=== PATIENT | male | born 1950 | race African-American/Black ===

== ENCOUNTER 2024-12-22 08:16 | Emergency (ER) | payer MEDICARE, MEDICAID, SELFPAY ==
[2024-12-22 08:28] VITALS: BP 153/95; PULSE 82; RESP 18; TEMP 36.5; O2SAT 98; BMI 22.8
--- NOTE | 2024-12-22 08:37 | XR_ITS ---
EXAMINATION: PA lateral chest 2 views TECHNIQUE: Upright PA lateral chest 2 views Date and time: December 22, 2024, 0844 hours INDICATION: Coughing and wheezing beginning 3 days ago. FINDINGS: Normal heart size No pneumonia or pulmonary edema Opaque foreign bodies in the soft tissue posterior right chest IMPRESSION: No pneumonia or pulmonary edema
--- NOTE | 2024-12-22 08:37 | EDNOTE_ITS ---
Upper Respiratory Inf. RME/HPI General Stated Complaint: NEEDS INHAILER PER PT Time Seen by Provider: 12/22/24 08:23 Arrival date/time: 12/22/24 08:16 74-year-old homeless male presents to the emergency department today requesting a inhaler refill patient reports he has had some wheezing reports he is out of his inhaler. Limitations: no limitations Related Data Previous Rx's ?Medication ?Instructions ?Recorded Ventolin HFA 90 mcg/actuation 2 puff inhalation Q6H AK N 12/22/24 aerosol inhaler (albuterol sulfate) shortness of breat h or wheezing #18 grams Allergies Allergy/AdvReac Type Severity Reaction Status Date / Time No Known Allergies Allergy Verified 12/22/24 08:17 Review of Systems Review of Systems Systems Reviewed: All systems reviewed, normal except as documented Constitutional Constitutional: Reports system reviewed and no additional complaints, except as documented, Denies fever(s) and Denies headache(s) Eyes Eyes: Reports system reviewed and no additional complaints, except as documented and Denies blurry vision ENT Ears, Nose, Mouth, and Throat: Reports system reviewed and no additional complaints, except as documented, Denies headache(s), Denies nasal congestion and Denies nasal discharge Cardiovascular Cardiovascular: Reports system reviewed and no additional complaints, except as documented, Denies chest pain and Denies dyspnea Respiratory Respiratory: Reports system reviewed and no additional complaints, except as documented, Reports chest congestion, Reports cough, Denies dyspnea and Reports wheezing Gastrointestinal Gastrointestinal: Reports system reviewed and no additional complaints, except as documented and Denies abdominal pain Integumentary/Breasts Skin/Breast: Reports system reviewed and no additional complaints, except as documented and Denies rash Neurologic Neurologic: Reports system reviewed and no additional complaints, except as documented, Reports as per HPI and Denies headache(s) Allergic/Immunologic Allergic/Immunologic: Reports wheezing Past Medical History Social History SMOKING STATUS: Never smoker ED Exam General Limitations: Present no limitations General appearance: Present alert and in no apparent distress Head Head exam: Present atraumatic, normocephalic and normal inspection Eye Eye exam: Present normal appearance, PERRL and EOMI; Absent conjunctival injection ENT ENT exam: Present normal exam, normal oropharynx and mucous membranes moist Neck Neck exam: Present normal inspection, full ROM and trachea midline Chest Chest inspection: Present normal inspection and symmetric chest wall rise Respiratory Respiratory exam: Present wheezes; Absent respiratory distress, stridor, accessory muscle use or prolonged expiratory phase Cardiovascular Cardiovascular exam: Present regular rate, normal rhythm and normal heart sounds Abdominal Exam Abdominal exam: Present soft and normal bowel sounds Extremities Exam Extremities exam: Present normal inspection and full ROM Back Exam Back exam: Present normal inspection and full ROM Neurological Exam Neurological exam: Present alert, oriented X3 and CN II-XII intact Psychiatric Psychiatric exam: Present normal affect and normal mood Skin Skin exam: Present warm, dry, intact and normal color Course Quality Measures none Orders Category Date Time Status Bedside COVID-19 Antigen Test NOW Care 12/22/24 08:37 Completed Consult Catering Coordinator NOW Care 12/22/24 09:37 Completed XR chest 2V Stat Exams 12/22/24 08:37 Completed ALBUTEROL RT 0.5ml [Proventil Rt 0.5ml] Med 12/22/24 08:37 Discontinued 2.5 mg INH X1 ONE Ipratropium Stanton Rt Marilyn [Atrovent Rt Marilyn] Med 12/22/24 08:37 Discontinued 1 mg INH X1 ONE Sodium Chloride Rt Marilyn 0.9% [NS Rt Marilyn 0.9%] Med 12/22/24 08:37 Discontinued 3 ml INH PRN PRN Vital Signs Vital signs: Vital Signs Temperature 97.7 F 12/22/24 08:28 Pulse Rate 82 12/22/24 08:28 Respiratory Rate 18 12/22/24 08:28 Blood Pressure 153/95 H 12/22/24 08:28 Pulse Oximetry (%) 98 12/22/24 08:28 Oxygen Delivery Method Room Air 12/22/24 08:28 O2 saturation 98% room air within normal limits Upper Respiratory Infection [facility] Narrative MDM Narrative:: 74-year-old homeless male presents to the emergency department today requesting a inhaler refill patient reports he has had some wheezing reports he is out of his inhaler. On exam patient does have a cough and mild expiratory wheeze Patient given a breathing treatment as well as steroids here granite worker made contact with patient per nurse request give the patient resources Patient was given a blanket as well as some clothing here At time of discharge patient is no difficulty breathing patient is thankful for the care patient discharged with an inhaler Explained to the patient should symptoms persist or worsen I would like him to return for reevaluation at any time Patient data External records reviewed:: [facility] previous records Clinical information provided by:: patient Social determinants that could affect healthcare access:: none Patient has the following chronic illnesses:: See history How is presenting disease/condition affected by chronic disease/condition?: caused by Evaluation data The following diagnostics were reviewed and interpreted by me:: lab results and radiology exam(s) Lab and/or radiology exams considered but not ordered:: Labs radiology obtained Interpretation Summary: Reviewed by me Medications / Prescriptions Medications or Prescriptions considered but not ordered:: Given Medication administrations:: Medication Administration History Discontinued Medications Albuterol (Albuterol Rt 2.5 Mg/0.5 Ml Nebu) 2.5 mg INH X1 ONE Stop: 12/22/24 08:38 Last Admin: 12/22/24 08:53 Dose: 2.5 mg Documented By: LOR Ipratropium Stanton (Ipratropium Rt 0.5 Mg/ 2.5 Ml Nebu) 1 mg INH X1 ONE Stop: 12/22/24 08:38 Last Admin: 12/22/24 08:54 Dose: 1 mg Documented By: LOR Sodium Chloride (Sodium Chloride Rt Marilyn 0.9% 3 Ml Nebu) 3 ml INH PRN PRN PRN Reason: SOLN Stop: 01/21/25 08:36 Given Consultations Consultation(s) initiated? (list below): No Diagnosis Upper Respiratory Differential Diagnosis: upper respiratory infection, sinusitis, viral infection and bronchitis Most likely diagnosis given after review of the tests above:: URI, asthma exacerbation Admission Indicated Admission indicated?: not indicated Admission Request Was there a request for admission?: No Disposition Plan Disposition Plan: Discharge Discharge Attestation Discharge Attestation: The patient and all family members were given an opportunity to ask questions and understood the discharge instructions. Discharge instructions specifically effects, indications for sooner follow up or return to the emergency department, and the expected course of current diagnosis. Patient condition: Stable Discharge Plan Plan Patient Disposition: HOME (Self Care) Discharge Disposition comment: Stable Prescriptions/Referrals Prescriptions/Med Rec: New albuterol sulfate [Ventolin HFA] 90 mcg/actuation HFA aerosol inhaler 2 puff inhalation Q6H PRN (Reason: shortness of breath or wheezing) Qty: 18 0RF Referrals: Jose Barry MD [Primary Care Provider, Family Practice] - In 1 week Problem List Clinical Impression: Asthma, Wheezing Patient/Caregiver Discharge Instructions Education Materials: Asthma Additional Instructions: Please follow up with your primary care doctor in the next 24-48hrs for any worsening symptoms return here immediately Print Language: Upper Sorbian Stand Alone Forms: Marian Award Info., Patient Portal Info Letter PA/WOOD MILLING MACHINE HAND Supervising Physician PA/WOOD MILLING MACHINE HAND Supervising Physician: Dr Vazquez
--- NOTE | 2024-12-22 08:45 | PC.NURSE ---
Pt. here from home to room 17, pt. states he has been SOB X 4 days. 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 Pt. is dirty and unkept. Pt. is not in distress but is mildly SOB. Yousuf RT is bedside for breathing TX.
[2024-12-22 08:53] VITALS: PULSE 80
[2024-12-22] MEDS: ALBUTEROL RT 2.5 MG/0.5 ML NEBU INH (08:53)
[2024-12-22 08:54] VITALS: PULSE 68; RESP 18; O2SAT 100
[2024-12-22] MEDS: IPRATROPIUM RT 0.5 MG/ 2.5 ML NEBU 1 MG INH (08:54)
[2024-12-22 11:00] VITALS: BP 148/93; PULSE 101; RESP 17; TEMP 36.8; O2SAT 96
--- NOTE | 2024-12-22 11:15 | PC.SS ---
Patient is alert/oriented. Patient is homeless. SS provided patient with clothing, food and transportation assistance to [facility] at the [facility], [address]. Doors open at 6p.m. Patient aware. Patient was previously in [place]. No family. Patient did not identify any alternate medical decision maker. Patient receives Social Security income. Patient has Medicare/Medical. All community resources were provided. All local shelters were full. Patient was agreeable to d/c plan. [facility] was set up and will arrive by 11:45. PCP: [facility] /Emmy Sandoval medical decision maker: none
== END 2024-12-22 11:00 | disposition home or self-care (01) ==
PROVIDERS: Emergency Provider Family Medicine; PCP Family Medicine
DX: J45.909 Unspecified asthma, uncomplicated (principal); Z59.00 Homelessness unspecified
CPT/HCPCS: 71046; 87635; 94640; 99283; J7644; J7611

== ENCOUNTER 2025-02-08 11:05 | Emergency (ER) | payer MEDICARE, MEDICAID, SELFPAY ==
[2025-02-08 11:12] VITALS: BP 151/77; PULSE 86; RESP 19; TEMP 36.5; O2SAT 98; BMI 28.8
--- NOTE | 2025-02-08 11:29 | PD.EDADULT ---
ED General RME/HPI General Chief complaint: Fall Stated complaint: DETENTION CHECK, FALL Time Seen by Provider: 02/08/25 11:15 Arrival date/time: 02/08/25 11:05 CC: Medical clearance HPI patient presents to the ER handcuffed with a PD officer, after missing sitting in a chair and falling on his behind. The patient was initially noncompliant then a mention briefly that he had left wrist pain but no other complaints after which the patient promptly stop speaking to me the police judge at bedside state the patient has fecal matter around his legs and has no pants, he is well-known to the police judge and has been arrested multiple times for defecation and masturbation in public. armor officer states the patient had defecated on himself prior to the fall which occurred in the police station in processing area. Patient is here for medical clearance related to that. After complaining of the left wrist the patient stopped talking but allowed me to examine the wrist but no other part of his body. Related Data Previous Rx's ?Medication ?Instructions ?Recorded Ventolin HFA 90 mcg/actuation 2 puff inhalation Q6H PRN 12/22/24 aerosol inhaler (albuterol sulfate) shortness of breath or wheezing #18 grams Allergies Allergy/AdvReac Type Severity Reaction Status Date / Time No Known Allergies Allergy Verified 02/08/25 11:16 Review of Systems Review of Systems Narrative Review of Systems: GEN: No fever, no chills, no weight loss EYES: No discharge, no visual changes, no pain HEENT: No ear pain, no congestion, no sore throat PULM: No shortness of breath, no cough, no congestion CV: No chest pain, no dyspnea on exertion, no palpitations GI: No nausea, no vomiting, no diarrhea, no pain, no constipation : No frequency, no urgency, no dysuria MUSC/SKEL: No joint pain, no back pain SKIN: No rash PSYCH: No hallucinations, no depression HEME/LYMPH: No easy bleeding or bruising tendencies NEURO: No weakness, no headache Past Medical History Social History SMOKING STATUS: Never smoker ED Exam Narrative Physical exam: [General: Appears not in any acute distress disheveled ill kempt and without pants. Head normocephalic HEENT: Eyes:. Pupils are PERRLA EOMs are intact within acceptable limits Neck is supple nontender Chest equal chest rise nontender to palpation Respiratory: Clear to auscultation no wheezes crackles or rubs CV: Rate rhythm is regular no murmurs rubs or clicks Abdomen is distended secondary to body habitus soft nontender no masses positive bowel sounds all 4 quadrants Back: No CVA tenderness no spinous process tenderness from cervical spine thoracic and lumbar spine Skin: Partial-thickness abrasion to the left wrist. Right wrist is intact, otherwise skin is intact no petechiae rash induration ulceration or crepitus Extremities: Moving all extremity against resistance cap refill less than 2 seconds neurosensory intact Neuro: Awake alert oriented x2, person and place, Glascow coma 15 no focal deficits] Course Quality Measures none Vital Signs Vital signs: Vital Signs Temperature 97.7 F 02/08/25 11:12 Pulse Rate 86 02/08/25 11:12 Respiratory Rate 19 02/08/25 11:12 Blood Pressure 151/77 H 02/08/25 11:12 Pulse Oximetry (%) 98 02/08/25 11:12 Oxygen Delivery Method Room Air 02/08/25 11:12 Discharge Plan Plan Patient Disposition: Group Home/Court/Law Patient condition on transfer: Stable Prescriptions/Referrals Prescriptions/Med Rec: No Action albuterol sulfate [Ventolin HFA] 90 mcg/actuation HFA aerosol inhaler 2 puff inhalation Q6H PRN (Reason: shortness of breath or wheezing) Qty: 18 0RF Referrals: No Primary/Family,Physician [Primary Care Provider] - In 1 week Problem List Clinical Impression: Fall, Abrasion of wrist, Medical clearance for incarceration Patient/Caregiver Discharge Instructions Education Materials: ED Abrasions Print Language: Georgian PA/ANODE WORKER Supervising Physician PA/ANODE WORKER Supervising Physician: Aston Heck ENP MDM Clinical Information Provided by: patient Medical Records reviewed [facility] Meds/Rx considered, not ordered None Labs/Rad/Tests considered, not ordered None Chronic Illness/Social Conditions which may negatively complicate care or outcome(s)-explain: Homeless EKG EKG not done Labs Labs: none Imaging Imaging interpretation: none Medication Administration(s) none Diagnosis Differential Diagnosis ED Complaint MDM: Wrist abrasion back strain scalp contusion
--- NOTE | 2025-02-08 11:33 | PC.NURSE ---
PATIENT BROUGHT TO ED BY AKILAH TRAN FOR A RETIREMENT CLEARANCE, PER OFFICER PATIENT WAS AT [facility] FOR CLEARANCE AND SLIPPED AND FELL WITH LEFT HIP PAIN. PATIENT DEFICATED ON SELF AND NEEDED TO BE CLEANED, PATIENT REFUSED TO CHANGE SOILED SOCKS. BRIEF PLACED ON PATIENT AND WOIND TO RIGHT HAND CLEANED AND DRESSED.
== END 2025-02-08 11:45 ==
PROVIDERS: Emergency Provider Registered Nurse General Practice
DX: Z02.89 Encounter for other administrative examinations (principal); S60.812A Abrasion of left wrist, initial encounter; W07.XXXA Fall from chair, initial encounter; Z91.199 Patient's noncompliance with other medical treatment and regimen due to unspecified reason
CPT/HCPCS: 99281